=== PATIENT | male | born 1970 | race Caucasian/White ===

== ENCOUNTER 2020-10-08 04:15 | Emergency (ER) | payer MEDICAID ==
--- NOTE | 2020-10-08 04:45 | NUR ---
PT CALLED TO TRIAGE, PT NOT IN THE WAITING ROOM
--- NOTE | 2020-10-08 05:10 | NUR ---
PT CALLED TO TRIAGE. PT NOT IN THE WAITING ROOM
== END 2020-10-08 05:24 | disposition left against medical advice (07) ==
LOC: ER 04:19
DX: Z02.89 Encounter for other administrative examinations (principal); Z53.21 Procedure and treatment not carried out due to patient leaving prior to being seen by health care provider